=== PATIENT | male | born 1950 | race Caucasian/White ===

== ENCOUNTER 2017-05-20 14:17 | Observation (INO) | payer BC ==
--- NOTE | ~2017-05-20 | OP ---
Record Of Operation [facility] [address] [place]. [address] NAME: SUSY OROPEZA : 52 STATUS : DIS Alicia PAT#: [id number] AGE: 66 ADM/REG DATE : 05/20/17 MR#: [id number] REPORT SERV DATE: 05/24/17 DICTATED BY: SUSY HART JR. DATE: 05/20/17 REPORT STATUS : Draft TRANSCRIBED BY: DIAN DATE: 05/20/17 DATE OF PROCEDURE: 05/20/2017 PREOPERATIVE DIAGNOSES: Severe COPD, right paratracheal mediastinal lymphadenopathy with impingement of the superior vena cava, previous history of myocardial infarction, previous history of stroke, and malnutrition. POSTOPERATIVE DIAGNOSES: Metastatic non small cell lung cancer. Final pathology, pending. NAME OF OPERATION: Diagnostic and therapeutic bronchoscopy, endobronchial ultrasound with multiple fine-needle aspirations, right paratracheal mass, myrtle station 4R. SURGEON: Dr. Susy Hart Jr. RESIDENT: Dr. Geovanny Stone. ANESTHESIA: General endotracheal. FINDINGS: The patient was noted to have a large pathologic-appearing right paratracheal mass with deviation to superior vena cava. There was a lot of hemorrhagic components to the samples, but within them was a definitive sample of poorly differentiated non-small cell lung cancer. An abundant material sent for cell block. Final pathology is pending. DETAILS OF OPERATION: After adequate general anesthesia, the patient was intubated. An LMA was placed. A diagnostic and therapeutic bronchoscopy was performed noting the above findings. There was no endobronchial lesions or abnormality seen. Mucous secretions were evacuated. On endobronchial ultrasound, the right paratracheal pathologic lymphadenopathy was easily seen. Multiple fine needle aspirations demonstrated metastatic non-small cell lung cancer. Additional material was sent for cell block . Final pathology was pending. Hemostasis was obtained. The procedure was terminated at this point. The patient tolerated the procedure well and taken back to recovery room in stable condition. ALEX/DIAN Susy Hart Jr., M.D. / [id number] CC: Susy Hailey Jr., M.D. MD Helena Kee MD Ahmad Ibrahimbacha, MD
[~2017-05-20 14:17] MED LIST: DULERA 200 MCG/13 GM INH; INCRUSE ELLI62.5 MCG INH; PROAIR HFA INH; [UNRECOGNIZED DRUG - REMARK]
[2017-05-20 15:02] LABS: HEMATOCRIT 44.5 % (40.0-51.0); HEMOGLOBIN 15.4 g/dL (13.6-17.8)
[2017-05-20 15:17] LABS: BUN (BLOOD UREA NITROGEN) 9 MG/DL (6-23); CALCIUM, SERUM 8.6 MG/DL (8.5-10.4); CHLORIDE, SERUM 104 MMOL/L (96-112); CO2 (CARBON DIOXIDE) 29 MMOL/L (24-34); CREATININE 0.83 MG/DL (0.70-1.30); GFR AFRICAN AMERICAN 107 ML/MIN (>=60); GFR NON AFRICAN AMERICAN 92 ML/MIN (>=60); GLUCOSE, SERUM 99 MG/DL (60-99); POTASSIUM, SERUM 4.1 MMOL/L (3.5-5.3); SODIUM, SERUM 139 MMOL/L (135-148)
== END 2017-05-21 11:41 | disposition home or self-care (01) ==
LOC: DMU 14:17 → 5NO 21:31
PROVIDERS: Anesthesiology; Internal Medicine; Thoracic Surgery (Cardiothoracic Vascular Surgery)
PROC: 07B74ZX Excision of Thorax Lymphatic, Percutaneous Endoscopic Approach, Diagnostic (ICD-10-PCS; principal; 2017-05-20 16:30)
DX: C34.90 Malignant neoplasm of unspecified part of unspecified bronchus or lung (principal); C77.9 Secondary and unspecified malignant neoplasm of lymph node, unspecified; I25.2 Old myocardial infarction; F17.210 Nicotine dependence, cigarettes, uncomplicated; R59.1 Generalized enlarged lymph nodes; E46 Unspecified protein-calorie malnutrition; I10 Essential (primary) hypertension; I25.10 Atherosclerotic heart disease of native coronary artery without angina pectoris; Z88.0 Allergy status to penicillin; Z79.899 Other long term (current) drug therapy; Z86.73 Personal history of transient ischemic attack (TIA), and cerebral infarction without residual deficits
CPT/HCPCS: 80048; 85014; 85018; 88172; 88173; 88305; 88342; 88344; 93005; 94640; A9270-GY; C1725; G0378; J2250; J2405; J3010